=== PATIENT | female | born 1995 | race Hispanic/Latino ===

== ENCOUNTER 2018-08-16 12:42 | Day surgery (SDC) | payer BC, OTHER ==
[2018-08-16 13:35] VITALS: BMI 44.4
--- NOTE | 2018-08-16 14:52 | PDOC.LDHP ---
Labor and Delivery H&P Chief complaint: other ("tightening"/pressure) HPI: - -EGA = 32 weeks 4 days -EDC - October 07 Pt is a 23 year old female who presents to L&D for "tightening"/ pressure. No recent trauma, no recent sex, no gush of fluid, no vaginal bleeding. Good movement. Current gestational age (weeks): 32 (4 days) Due date: 10/07/18 Dating criteria: last menstrual period Grav: 2 Para: 1 OB History Details: x1 Current complications: none Abnormal US findings: No Current medications: pre-dev vitamins Previous surgical history: none Allergies/Adverse Reactions: Allergies Allergy/AdvReac Type Severity Reaction Status Date / Time No Known Allergies Allergy Unverified 08/16/18 13:32 Social history: none - Physical Exam Vital signs reviewed and normal: yes General: NAD Heart: RRR Lungs: CTAB Abdomen: gravid FHT: category 1 (Reactive NST) [place] contractions every: No contraction pattern - Vaginal Exam cm dilated: 0 Effacement: 0% Station: -3 - Assessment Pelvic pressure at 32 weeks 4 days, . No CSX history - Plan Plan: observation in L&D (Plan: -FFN -Cervical check -Observe on L&D Addendum : FFN now returned negative. As cervic closed and FFN negative, okay for outpatient care)
[2018-08-16 14:54] LABS: FFN Internal QC Analyzer PASS (PASS); FFN Internal QC Cassette PASS (PASS); Fetal Fibronectin Negative (Negative)
== END 2018-08-16 15:17 | disposition home or self-care (01) ==
LOC: L&D/OP 12:42
PROVIDERS: ATTEND Obstetrics & Gynecology
DX: O99.89 Other specified diseases and conditions complicating pregnancy, childbirth and the puerperium (principal); R10.2 Pelvic and perineal pain; Z3A.32 32 weeks gestation of pregnancy
CPT/HCPCS: 82731; 99283

== ENCOUNTER 2018-09-09 15:32 | Day surgery (SDC) | payer OTHER ==
--- NOTE | 2018-09-09 18:03 | PDOC.FPROB ---
FMR OB H&P: HPI - History of Present Illness Chief Complaint: Contractions Indentification: 23 year old at 36 wks History of Present Illness: 23 year old at 36.0 wks with SIDDHARTH of 10/07/2018 presents with contractions since 11:30 this morning. Contractions were every 4-5 minutes initially but spaced out to every 7 minutes. Patient did have sexual intercourse just prior to contractions. She denies any vaginal bleeding, vaginal discharge, or LoF. Patient denies headache, vision changes, or RUQ pain. She has had a uncomplicated . Primary Care Physician: Leslie FMR OB H&P: Current - Care : 2 Para: 1001 Gestational age: 36.0 wks Due date: 10/07/2018 - OB Labs 1 hour gtt: nml FMR OB H&P: History - Past Medical History PMH: Insignificant - OB History OB History: Hx of Pre-E in prior - [employer] History [employer] History: None - Surgical History Sx History: None - Social History Social History: Denies alcohol, tobacco, or drug use. - Family History Family History: Maternal and paternal history of FMR OB H&P: Medications - Current Home Medications: Medication Instructions Recorded Confirmed Type Aspirin [Aspirin Chewable] 81 mg PO DAILY 08/16/18 09/09/18 History Vit,Calc76/Iron/Folic 1 tablet PO DAILY 08/16/18 09/09/18 History [Prenatabs Rx Tablet] Allergies/Adverse Reactions: Allergies Allergy/AdvReac Type Severity Reaction Status Date / Time No Known Allergies Allergy Verified 09/09/18 17:46 FMR OB H&P: ROS - Review of Systems General: denies: fever/chills, weight/appetite/sleep changes, night sweats Eyes: denies: vision changes, double vision ENT: denies: nasal congestion, sore throat Cardiovascular: denies: chest pain, palpitation, edema Respiratory: denies: cough, congestion, shortness of breath Gastrointestinal: denies: abdominal pain, nausea, vomiting Genitourinary (Female): reports: polyuria, contractions. denies: dysuria, vaginal discharge, vaginal pain, vaginal bleeding Musculoskeletal: denies: pain, stiffness Neurologic: denies: syncope, seizures, weakness Hematologic/Lymphatic: denies: prolonged or excessive bleeding Psychological: denies: depression, anxiety FMR OB H&P: Vital Signs - Maternal Vital signs: BP 120/76 Pulse 95 - Heart Tones Baseline: 135 Variability: moderate Acceleration: present Deceleration: absent Category: category 1 [place] contractions every: Irregular FMR OB H&P: Physical Exam - Physical Exam General: NAD, awake, alert and oriented HEENT: MMM Neck: supple Heart: RRR General: no respiratory distress, no retractions Abdomen: soft, gravid, non-tender, bowel sound present Musculoskeletal: pulses present Neurological: no tremor, no focal deficit Skin: no rash, capillary refill <2 seconds Lymphatic: no unusual bruising or bleeding, no purpura Psychiatric: intact recent and remote memory, good judgement and insight, normal mood and affect FMR OB H&P: A/P - Problem List (1) Current Visit: Yes Status: Acute Qualifiers: Weeks of gestation: 36 weeks Qualified Code(s): Z3A.36 - 36 weeks gestation of (2) History of pre-eclampsia in prior , currently Current Visit: Yes Status: Acute Code(s): O09.299 - SUPRVSN OF PREG W POOR REPRODCTV OR OBSTET HISTORY, UNSP TRI Disposition: 23 year old at 36 wks presents with contractions 1. sIUP - At 36 wks - Irregular contractions (q7-10 min); mildly painful - Initial cervical check 1/50/high; repeat 1.5 hrs later relatively unchanged - No evidence of labor - labor precautions provided 2. Hx of pre-E in prior - On ASA therapy - BP 120/76 Dispo: Stable. D/C home with return precautions. Discussion: Date/Time: 09/09/181800 This H&P was discussed with Dr. Cha who agrees with the above documentation and plan. Signature: Lacey Cervantes, PGY-2
[2018-09-10] MEDS ORDERED: Morphine 10 MG/ML VIAL IM SCH (01:45)
== END 2018-09-09 18:46 | disposition home or self-care (01) ==
LOC: L&D/OP 15:32
PROVIDERS: ATTEND Obstetrics & Gynecology
DX: O47.03 False labor before 37 completed weeks of gestation, third trimester (principal); Z3A.36 36 weeks gestation of pregnancy; Z79.82 Long term (current) use of aspirin; Z79.899 Other long term (current) drug therapy
CPT/HCPCS: 99282

== ENCOUNTER 2018-09-09 22:51 | Day surgery (SDC) | payer OTHER ==
[2018-09-09 23:26] VITALS: BP 117/69; TEMP 98.9; BMI 45.0
[2018-09-10] MEDS ORDERED: Betamet Acet/Betamet Na Ph 30 MG/5 ML VIAL IM SCH (00:15)
[2018-09-10] MEDS ORDERED: Morphine 10 MG/ML VIAL IM SCH (01:45)
--- NOTE | 2018-09-10 08:56 | HP ---
DATE OF SERVICE: 09/09/2018 PRIMARY OB: Dr. Darline Nelson. HISTORY OF PRESENT ILLNESS: The patient is a 23-year-old female G2, P1 with an intrauterine pregnanc y at 36 weeks who was representing to Labor and Delivery with continued contractions since this morni ng at 11:30. The patient's prior evaluation continued here for several hours and had no cervical mabel nge. The patient did have intercourse prior to her initial visit. She has returned reporting that h er contractions have gotten worse and she is feeling more pressure and came for evaluation. She stat es that the contractions are occurring about every 4-5 minutes. She denies leakage of fluid. Denies vaginal bleeding. Denies change in discharge. Denies headache, vision changes, chest pain, shortne ss of breath, nausea, vomiting. PAST MEDICAL HISTORY: Negative. PAST SURGICAL HISTORY: Negative. OBSTETRIC HISTORY: She had preeclampsia in a prior . SOCIAL HISTORY: Denies drug, alcohol or tobacco use. OB LABS: Unavailable at the time of dictation. REVIEW OF SYSTEMS: Per HPI. PHYSICAL EXAMINATION: VITAL SIGNS: Blood pressure 117/69, temperature 98.9, pulse of 93, respiratory rate 18. GENERAL: She appeared to be in no acute distress. She is alert and oriented, cooperative and pleasa nt to interact with. HEENT: Head is normocephalic, atraumatic. LUNGS: Clear to auscultation bilaterally. HEART: Has a regular rate and rhythm. ABDOMEN: Soft, nontender. EXTREMITIES: Nontender, nonedematous. The patient was noted to be 3 cm dilated on cervical exam per nursing staff, 50% effaced and -3 stati on. Repeat exam 2 hours later showed unchanged at 3, 50, -3 station. heart tracing performed. The patient noted to have a baseline in the 140s with moderate long-t erm variability, positive accelerations, 15 x 15 accelerations, no decelerations. Tocometer showing a lot of irritability with contractions about every 6-7 minutes to 10 minutes. ASSESSMENT AND PLAN: The patient is a 23-year-old G2, P1 female with an intrauterine at 36 weeks who has been having regular uterine contractions since having intercourse earlier in the day. She was noted this evening have a cervical exam of 3, 50, -3 station, unchanged after 2 hours. The patient at that point was amendable to going home and was discharged with 10 mg of morphine IM to [facility] e her some comfort to allow her to sleep and also given her status, a dose of betamethasone. The patient has been given labor precautions and to return should her symptoms persist.
== END 2018-09-10 02:00 | disposition home or self-care (01) ==
LOC: L&D/OP 22:51
PROVIDERS: ATTEND Obstetrics & Gynecology
DX: O60.03 Preterm labor without delivery, third trimester (principal); Z3A.36 36 weeks gestation of pregnancy; Z79.82 Long term (current) use of aspirin; Z79.899 Other long term (current) drug therapy
CPT/HCPCS: 96372; 99283; J0702; J2270

== ENCOUNTER 2018-09-10 20:28 | Day surgery (SDC) | payer OTHER | END 2018-09-10 20:45 | disposition home or self-care (01) | LOC: L&D/OP 20:28 | PROVIDERS: ATTEND Obstetrics & Gynecology | DX: Z29.8 Encounter for other specified prophylactic measures (principal); Z79.82 Long term (current) use of aspirin; Z79.899 Other long term (current) drug therapy | CPT/HCPCS: 96372 ==

== ENCOUNTER 2018-09-30 08:57 | Day surgery (SDC) | payer OTHER ==
[2018-09-30] MEDS ORDERED: Butorphanol Tartrate 1 MG/ML VIAL SLOW IVP PRN (09:01)
[2018-09-30] MEDS ORDERED: NS w/ Oxytocin 10 units 500 ML IV SCH (09:01)
[2018-09-30] MEDS ORDERED: NS / Oxytocin 40 units/1000ml 1,000 ML IV PRN (09:01)
[2018-09-30] MEDS ORDERED: Lidocaine 1% (PF) 30 ML VIAL SC PRN (09:01)
[2018-09-30] MEDS ORDERED: HYDROcodone/Acetaminophen 5/325 mg Tablet PO PRN (09:01)
[2018-09-30] MEDS ORDERED: Promethazine HCl 25 MG/ML VIAL IM PRN (09:01)
[2018-09-30] MEDS ORDERED: Acetaminophen 500 MG TAB PO PRN (09:01)
[2018-09-30] MEDS ORDERED: Lactated Ringer's 1,000 ML IV SCH (09:01)
[2018-09-30] MEDS ORDERED: Ibuprofen 800 MG TAB PO PRN (09:01)
[2018-09-30] MEDS ORDERED: Ondansetron PF 4 MG/2 ML Vial IVP PRN (09:01)
[2018-09-30 09:39] VITALS: BP 112/58; TEMP 98.9
[2018-09-30 09:40] VITALS: BMI 47.6
--- NOTE | 2018-10-01 10:38 | PDOC.LDPN ---
Labor & Delivery Progress Note - Subjective Subjective: comfortable - Objective Vital signs reviewed and normal: yes General: NAD Dilation: 3 Effacement: 50% Station: -2 FHT: category 1 [place] contractions every: irregular - Assessment (1) 38 weeks gestation of Code(s): Z3A.38 - 38 WEEKS GESTATION OF Status: Acute -: Pt was inappropriately scheduled @ 38w6d for EIOL. Fetus reassuring and SVE unchanged from prior exam. Reviewed mistake with pt and d/c home with reschedule on 10/02/18. Pt verbalized understanding.
== END 2018-09-30 10:45 | disposition home or self-care (01) ==
LOC: L&D/OP 08:57 → L&D 09:39 → L&D/OP 10:45 → UNDODISIN 10:45
PROVIDERS: ATTEND Obstetrics & Gynecology
DX: Z34.93 Encounter for supervision of normal pregnancy, unspecified, third trimester (principal); Z3A.38 38 weeks gestation of pregnancy

== ENCOUNTER 2018-10-02 00:32 | Inpatient (IN) | payer OTHER ==
--- NOTE | 2018-10-01 10:44 | PDOC.LDHP ---
Labor and Delivery H&P Chief complaint: contractions, loss of fluid HPI: 23 yo @ 39w1d by LMP c/w 8 week CRL who presents for ctx and SROM. Pt has h /o preE, on ASA and obesity. Otherwise antepartum course benign. Current gestational age (weeks): 39 Due date: 10/08/18 Dating criteria: last menstrual period Grav: 2 Para: 1 OB History Details: TSVD with preE Current complications: none Abnormal US findings: No Past Medical History: Denies Current medications: pre-dev vitamins Previous surgical history: none Allergies/Adverse Reactions: Allergies Allergy/AdvReac Type Severity Reaction Status Date / Time No Known Allergies Allergy Verified 10/02/18 01:52 Social history: none - Physical Exam Vital signs reviewed and normal: yes General: NAD Heart: RRR Lungs: nonlabored breathing Abdomen: gravid Extremeties: no edema FHT: category 1 [place] contractions every: q3-4 min - Vaginal Exam cm dilated: 5 (per RN initial assessment ) Effacement: 100% Station: 0 - OB Labs Blood type: O RH: positive Antibody Screen: negative HIV: negative RPR: negative HEPSAg: negative 1 hour GCT: negative GBS: negative Urine drug screen: not done Rubella: immune - Assessment L&D Assessment: term rupture in membranes Maternal obesity - Plan Plan: admit to L&D, informed consent obtained, anesthesia consult for pain management
[2018-10-02] MEDS ORDERED: NS w/ Oxytocin 10 units 500 ML IV SCH (00:33)
[2018-10-02] MEDS ORDERED: Butorphanol Tartrate 1 MG/ML VIAL SLOW IVP PRN (00:33)
[2018-10-02] MEDS ORDERED: Lidocaine 1% (PF) 30 ML VIAL SC PRN (00:33)
[2018-10-02] MEDS ORDERED: Ondansetron PF 4 MG/2 ML Vial IVP PRN ×2 (00:33→01:41)
[2018-10-02] MEDS ORDERED: Ibuprofen 800 MG TAB PO PRN (00:33)
[2018-10-02] MEDS ORDERED: Promethazine HCl 25 MG/ML VIAL IM PRN ×2 (00:33→01:41)
[2018-10-02] MEDS ORDERED: Diphenoxylate HCl/Atropine Tablet PO PRN (00:33)
[2018-10-02] MEDS ORDERED: Misoprostol 200 MCG TAB PR PRN (00:33)
[2018-10-02] MEDS ORDERED: Acetaminophen 500 MG TAB PO PRN (00:33)
[2018-10-02] MEDS ORDERED: Carboprost 250 MCG/ML AMP IM PRN (00:33)
[2018-10-02] MEDS ORDERED: Methylergonovine 0.2 MG/ML VIAL IM PRN ×2 (00:33→07:29)
[2018-10-02] MEDS ORDERED: HYDROcodone/Acetaminophen 5/325 mg Tablet PO PRN ×2 (00:33→07:29)
[2018-10-02] MEDS: Lactated Ringer's 1,000 ML IV SCH ×2 (01:05→02:05)
[2018-10-02] MEDS ORDERED: Fentanyl 4 mcg/Bup 0.1% Cadd 100 ML ONE (01:10)
[2018-10-02 01:40] LABS: Hemoglobin 13.2 g/dL (12.0-16.0); Mean Corpuscular Hemoglobin 29.9 pg (27.0-31.0); Mean Corpuscular Volume 85.6 fL (78.0-98.0); Mean Platelet Volume 8.2 fL (7.4-10.4); Platelet Count 281 thou/uL (130-400); RBC Distribution Width 12.9 % (11.5-14.5); Red Blood Cell (RBC) Count 4.39 mill/uL (4.20-5.40); White Blood Cell (WBC) Count 12.9 thou/uL (4.8-10.8)
[2018-10-02] MEDS ORDERED: Lactated Ringer's 500 ML IV PRN (01:41)
[2018-10-02] MEDS ORDERED: Acetaminophen 325 MG TAB PO PRN (01:41)
[2018-10-02] MEDS ORDERED: Eucerin (Mineral Oil/Petrolatum,White) 30 gm Jar TOP PRN (01:41)
[2018-10-02] MEDS ORDERED: diphenhydrAMINE 50 MG/ML VIAL IVP PRN (01:41)
[2018-10-02] MEDS ORDERED: ePHEDrine/0.9% NaCl/PF SYRINGE 50 mg/10 ml SLOW IVP PRN (01:41)
[2018-10-02] MEDS ORDERED: Naloxone HCl 0.4 mg/ml Vial IVP PRN ×2 (01:41)
[2018-10-02] MEDS ORDERED: Communication Order-Pharmacy FS SCH (01:45)
[2018-10-02] MEDS ORDERED: Fentanyl 4 mcg/Bupivacaine 0.1% Cassette 100 ML EPIDURAL SCH (01:45)
[2018-10-02 01:58] VITALS: BMI 47.6
[2018-10-02 02:18] LABS: HBSAg Index 0.21 S/CO (0-0.99); HIV (1/2) Antibody/Antigen Non-Reactive (NonReactive); HIV 1/2 INDEX 0.07 S/CO (<1.00); Hep B Surf Ag Non-Reactive S/CO (NonReactive)
[2018-10-02 04:22] LABS: Syphilis Antibody Nonreactive (Nonreactive); Syphilis Antibody Index 0.05 S/CO (<1.00 Non-Reactive)
[2018-10-02] MEDS: NS / Oxytocin 40 units/1000ml 1,000 ML IV PRN ×2 (05:00→06:14)
--- NOTE | 2018-10-02 05:22 | PDOC.OPDEL ---
OB Operative/Delivery Note Delivery Dr/Surgeon: Darline Nelson DO Pre-Delivery Diagnosis: active labor Procedure/Post Delivery Dx: spontaneous vaginal delivery Weeks gestation: 39 Anesthesia: epidural - Findings A Sex: male - 1 min: 8 - 5 min: 9 - Additional Findings/Plan Placenta delivered: spontaneous Repaired Obstetrical Laceration: 1st degree Estimated blood loss: QBL 71 cc Compilations/Other Findings: in cephalic presentation Thin meconium stained amniotic fluid Normal appearing placenta Maternal temp 100.8F after delivery, afebrile before. Now S/P delivery. Notified nursery. No Abx at this time as asx and s/p . Post delivery plan: routine recovery
[2018-10-02] MEDS ORDERED: Preparation H Ointment 28 GM TUBE PR PRN (07:29)
[2018-10-02] MEDS ORDERED: Lanolin Ointment 7 GM TUBE TOP PRN (07:29)
[2018-10-02] MEDS ORDERED: Ibuprofen 800 MG TAB PO SCH ×2 (07:29→07:45)
[2018-10-02] MEDS ORDERED: Milk Of Magnesia 30 ML UDCUP PO PRN (07:29)
[2018-10-02] MEDS ORDERED: NS / Oxytocin 40 units/1000ml 1,000 ML IV SCH (07:29)
[2018-10-02] MEDS ORDERED: Zolpidem Tartrate 5 MG TAB PO PRN (07:29)
[2018-10-02] MEDS ORDERED: Benzocaine/Menthol 20-0.5% 60 ML CAN TOP PRN (07:29)
[2018-10-02] MEDS ORDERED: diphenhydrAMINE 25 MG CAP PO PRN (07:29)
[2018-10-02] MEDS: Ferrous Sulfate 325 MG TAB PO SCH ×2 (09:12→15:33)
[2018-10-02] MEDS: Prenatal Vitamin 1 TAB PO SCH (09:12)
[2018-10-02] MEDS: Docusate Calcium (SURFAK) 240 MG CAP PO SCH ×2 (09:12→22:03)
[2018-10-02] MEDS: Ibuprofen 800 MG TAB PO SCH ×2 (14:01→22:03)
[2018-10-02] MEDS ORDERED: Bupivacaine 0.25% HCL 30 ML VIAL ONE (15:00)
[2018-10-03] MEDS: Ibuprofen 800 MG TAB PO SCH ×2 (05:50→14:54)
[2018-10-03 06:30] LABS: Hemoglobin 12.2 g/dL (12.0-16.0); Mean Corpuscular HGB CONC 34.9 g/dL (32.0-36.0); Mean Corpuscular Hemoglobin 30.2 pg (27.0-31.0); Mean Corpuscular Volume 86.7 fL (78.0-98.0); Mean Platelet Volume 7.7 fL (7.4-10.4); Platelet Count 273 thou/uL (130-400); Red Blood Cell (RBC) Count 4.04 mill/uL (4.20-5.40); White Blood Cell (WBC) Count 13.4 thou/uL (4.8-10.8)
[2018-10-03] MEDS: Ferrous Sulfate 325 MG TAB PO SCH ×2 (07:22→15:55)
[2018-10-03 08:21] VITALS: BP 118/60; TEMP 98.5
[2018-10-03] MEDS: Docusate Calcium (SURFAK) 240 MG CAP PO SCH (09:10)
[2018-10-03] MEDS: Prenatal Vitamin 1 TAB PO SCH (09:10)
--- NOTE | 2018-10-03 10:38 | PDOC.PP ---
Post Progress Note Post Day #: 1 Subjective: No concerns. Doing well. Bottle feeding. Minimal lochia and pain PO intake tolerated: yes Flatus: yes Ambulation: yes Vital Signs (12 hours) Temp Pulse Resp BP Pulse Ox 10/03/18 08:20 98.5 F 49 L 20 118/60 96 10/03/18 05:50 98.1 F 69 18 131/68 97 10/03/18 01:45 69 20 126/81 96 Weight Weight 236 lb - Physical Examination General: NAD Cardiovascular: RRR Respiratory: non-labored breathing Abdominal: no distention, appropriately TTP Fundus firm & at: below umbilicus Extremities: negative homans (B) Neurological: no gross focal deficits Psychiatric: A&Ox3, normal affect Result Diagrams: 10/03/18 06:09 Additional Labs: Post Labs Blood Type O POSITIVE 10/02/18 01:26 Hep Bs Antigen Non-Reactive S/CO (NonReactive) 10/02/18 01:26 (1) Vaginal delivery Code(s): O80 - ENCOUNTER FOR FULL-TERM UNCOMPLICATED DELIVERY Status: Acute - Assessment/Plan PPD1 VSSAF Stable for d/c home. F/U 6 weeks for PP appt.
== END 2018-10-03 18:45 | disposition home or self-care (01) | DRG 806 ==
LOC: L&D 00:32 → 3SW 08:43
PROVIDERS: ADMIT Obstetrics & Gynecology; ATTEND Obstetrics & Gynecology
PROC: 10E0XZZ Delivery of Products of Conception, External Approach (ICD-10-PCS; principal; 2018-10-02)
PROC: 4A1HXCZ Monitoring of Products of Conception, Cardiac Rate, External Approach (ICD-10-PCS; 2018-10-02)
PROC: 4A1HXFZ Monitoring of Products of Conception, Cardiac Rhythm, External Approach (ICD-10-PCS; 2018-10-02)
DX: O14.94 Unspecified pre-eclampsia, complicating childbirth (principal); Z68.42 Body mass index [BMI] 45.0-49.9, adult; Z37.0 Single live birth; O36.8330 Maternal care for abnormalities of the fetal heart rate or rhythm, third trimester, not applicable or unspecified; Z3A.39 39 weeks gestation of pregnancy; O70.0 First degree perineal laceration during delivery; O69.81X0 Labor and delivery complicated by cord around neck, without compression, not applicable or unspecified; O99.214 Obesity complicating childbirth; E66.9 Obesity, unspecified; Z79.82 Long term (current) use of aspirin
CPT/HCPCS: 36415; 51702; 85027; 86780; 86850; 86900; 86901; 87340; 87389; J2001; S0020

== ENCOUNTER 2019-11-28 10:27 | Emergency (ER) | payer OTHER ==
[2019-11-28 10:56] LABS: #Basophils 0.1 thou/uL (0.0-0.2); #Monocytes 0.6 thou/uL (0.11-0.59); #Neutrophils 8.4 thou/uL (1.40-6.50); %Basophils 0.6 % (0.0-1.0); %Eosinophils 0.3 % (0.0-10.0); %Lymphocytes 17.8 % (21.0-51.0); %Monocytes 5.4 % (0.0-10.0); %Neutrophils 75.9 % (42.0-75.0); Hemoglobin 14.1 g/dL (12.0-16.0); Mean Corpuscular HGB CONC 34.4 g/dL (32.0-36.0); Mean Corpuscular Hemoglobin 30.2 pg (27.0-31.0); Mean Corpuscular Volume 87.9 fL (78.0-98.0); Platelet Count 348 thou/uL (130-400); RBC Distribution Width 12.4 % (11.5-14.5); Red Blood Cell (RBC) Count 4.65 mill/uL (4.20-5.40)
[2019-11-28] MEDS ORDERED: Ondansetron PF 4 MG/2 ML Vial ONE ×2 (11:00→12:44)
[2019-11-28 11:33] LABS: ALT (SGPT) 20 U/L (8-55); AST (SGOT) 15 U/L (5-34); Albumin 4.3 g/dL (3.5-5.0); Alkaline Phosphatase 55 U/L (40-110); Anion Gap 13 mmol/L (10-20); BUN (Urea Nitrogen) 5 mg/dL (7.0-18.7); Bilirubin, Total 0.5 mg/dL (0.2-1.2); Calc. Creatinine Clearance 0 mL/min (70-130); Calcium 9.2 mg/dL (7.8-10.44); Carbon Dioxide 23 mmol/L (22-29); Chloride 104 mmol/L (98-107); Estimated GFR-MDRD Greater than 90; Glucose 98 mg/dL (70-105); Lipase 18 U/L (8-78); Magnesium 1.7 mg/dL (1.6-2.6); Potassium 3.7 mmol/L (3.5-5.1); Protein, Total 7.3 g/dL (6.0-8.3); Sodium 136 mmol/L (136-145)
[2019-11-28 12:07] LABS: Bacteria/HPF None Seen HPF (None Seen); Bilirubin Negative (Negative); Blood, Urine 1+ (Negative); Clarity Clear (Clear); Glucose, Urine (Dipstick) Normal (Negative); Leukocyte 25 Leu/uL (Negative); Nitrite Negative (Negative); Protein, Urine (Dipstick) 300 mg/dL (Neg-Trace); WBC/HPF 0-3 HPF (0-3)
== END 2019-11-28 12:58 | disposition home or self-care (01) ==
LOC: ERS 10:27
DX: O21.9 Vomiting of pregnancy, unspecified (principal); Z3A.08 8 weeks gestation of pregnancy
CPT/HCPCS: 80048; 81003; 81015; 83690; 83735; 85025; 96361; 96374; 96376; J2405

== ENCOUNTER 2019-12-09 06:26 | Emergency (ER) | payer SELFPAY ==
[2019-12-09 06:53] LABS: #Basophils 0.1 thou/uL (0.0-0.2); #Eosinphils 0.1 thou/uL (0.0-0.7); #Lymphocytes 2.2 thou/uL (1.20-3.40); #Monocytes 0.7 thou/uL (0.11-0.59); #Neutrophils 7.6 thou/uL (1.40-6.50); %Basophils 0.9 % (0.0-1.0); %Eosinophils 0.6 % (0.0-10.0); %Lymphocytes 20.7 % (21.0-51.0); %Monocytes 6.7 % (0.0-10.0); %Neutrophils 71.1 % (42.0-75.0); Hemoglobin 14.5 g/dL (12.0-16.0); Mean Corpuscular HGB CONC 35.6 g/dL (32.0-36.0); Mean Corpuscular Hemoglobin 30.9 pg (27.0-31.0); Mean Corpuscular Volume 86.7 fL (78.0-98.0); Mean Platelet Volume 7.5 fL (7.4-10.4); Platelet Count 339 thou/uL (130-400); RBC Distribution Width 12.4 % (11.5-14.5); Red Blood Cell (RBC) Count 4.71 mill/uL (4.20-5.40); White Blood Cell (WBC) Count 10.7 thou/uL (4.8-10.8)
[2019-12-09 07:15] LABS: ALT (SGPT) 39 U/L (8-55); AST (SGOT) 35 U/L (5-34); Albumin 4.5 g/dL (3.5-5.0); Alkaline Phosphatase 68 U/L (40-110); Anion Gap 17 mmol/L (10-20); BUN (Urea Nitrogen) 7 mg/dL (7.0-18.7); Bilirubin, Total 1.7 mg/dL (0.2-1.2); Calc. Creatinine Clearance 0 mL/min (70-130); Calcium 9.7 mg/dL (7.8-10.44); Carbon Dioxide 21 mmol/L (22-29); Chloride 102 mmol/L (98-107); Estimated GFR-MDRD Greater than 90; Globulin 3.2 g/dL (2.4-3.5); Glucose 98 mg/dL (70-105); Potassium 3.7 mmol/L (3.5-5.1); Protein, Total 7.7 g/dL (6.0-8.3); Sodium 136 mmol/L (136-145)
[2019-12-09 09:05] LABS: Bilirubin 1+ (Negative); Blood, Urine 1+ (Negative); Clarity Clear (Clear); Glucose, Urine (Dipstick) Normal (Negative); Leukocyte Negative Leu/uL (Negative); Mucous/LPF 2+ LPF (<2+); Nitrite Negative (Negative); Protein, Urine (Dipstick) 600 mg/dL (Neg-Trace); Urobilinogen Greater than 12 mg/dL (Less than 2); WBC/HPF 0-3 HPF (0-3)
[2019-12-09 09:15] LABS: Bacteria/HPF None Seen HPF (None Seen)
== END 2019-12-09 09:33 | disposition home or self-care (01) ==
LOC: ERS 06:26
DX: O99.281 Endocrine, nutritional and metabolic diseases complicating pregnancy, first trimester (principal); E86.0 Dehydration; O21.9 Vomiting of pregnancy, unspecified; O99.341 Other mental disorders complicating pregnancy, first trimester; F41.9 Anxiety disorder, unspecified; F32.9 Major depressive disorder, single episode, unspecified; Z3A.09 9 weeks gestation of pregnancy
CPT/HCPCS: 36416; 80053; 81003; 81015; 84702; 85025